=== PATIENT | female | born 1995 | race Caucasian/White ===

== ENCOUNTER 2024-08-18 14:33 | Outpatient (REF) | payer BC, SELFPAY ==
--- OUTSIDE RECORDS SUMMARY | 2016-07-10 14:30 | XMS_ITS | Continuity of Care Document ---
Author Organization [facility] Address [address] [place] [address] Phone Care Team Providers Care Dog Daycare Provider Name Role Phone Carmen Banda Unavailable Unavailable [...] Copied on Encounter Office/outpa tient visit,est, mod [facility], [address], [place], [place], [id number], [place] tel:[phone] [facility] [place] [place] [facility] Neck pain (chief complaint) Strain of neck, initial encounterNec k muscle spasm 7 Veronika Morales. [address], [place], [address], [place]. tel:[phone] [facility], [address], [place], [place], [id number], [place] tel:[phone] [facility] [place] Radiology Void Ticket 7 [facility]. [address] [place], [address], [place]. tel:[phone] Office/outpa tient visit,jan [facility], [address] [place] [address], [id number], [place] tel:[phone] [facility] [place] [facility] Care musculoskelet al pain (chief complaint) Acute pain of right shoulder 7 Linsenbigle r Edwin. [facility] [place], [address], [place]. tel:[phone] Office/outpa tient visit,[facility], [address] [place] [address], [id number], [place] tel:[phone] [facility] Sore throat (chief complaint)Cli nical guidelines (chief complaint) Acute bacterial tonsillitisO th bacterial agents as the cause of diseases classd elswhrBody mass index (BMI) 32.0-32.9, adult 6 Cushingber[place] y-Rivas Julia. [address] [place] [address], [address], [place]. tel:[phone] Office/outpa tient visit,[facility], [address] [place] [address], [id number], [place] tel:[phone] [facility] Cough (chief complaint) CoughEncount er for exam of blood pressure w/o abnormal findings 5 Cushingber[place] y-Rivas Julia. [address] [place], [address], [place]. tel:[phone] Office/outpa tient visit,[facility], [facility], [address] [place] [address], [id number], [place] tel:[phone] [facility] cough (chief complaint) URI, acutePregnan t 5 Silverio Omer. [facility] [place], [address], [place]. tel:[phone] [facility], [address], [place], [place], [id number], [place] tel:[phone] [facility] [place] Radiology No Information 5 Ludin Wayneder. [address] [place], [address], [place]. tel:[phone] Office/outpa tient visit,est, [facility], [address], [place], [place], [id number], [place] tel:[phone] [facility] [place] [facility] L ankle swollen (chief complaint)ank le pain (chief complaint) Left ankle injury 5 Noland Yadwinder. [address] [place], [address], [place]. tel:[phone] Office/outpa tient visit,[facility], [facility], [address], [place], [id number], [place] tel:[phone] [facility] Discuss test results (chief complaint) Mass of right axilla 5 Cushingberr y-Rivas Julia. [address] [place], [address], [place]. tel:[phone] Office/outpa tient visit,[facility], [facility], [address], [place], [id number], [place] tel:[phone] [facility] Follow Up of Mass of R- axilla (chief complaint) Mass of right axilla 5 Cushingberr y-Rivas Julia. [address] [place], [address], [place]. tel:[phone] Office/outpa tient visit,[facility], [facility], [address], [place], [id number], [place] tel:[phone] [facility] ultrasound results (chief complaint) LOCAL SUPRFICIAL SWELLNG 5 4 Latanya Dumont. [address] [place], [address], [place]. tel:[phone] OFFICE/OUTPA TIENT VISIT [facility], [address], [place], [place], [id number], [place] tel:[phone] [facility] swollen underarm (chief complaint) OTH SPECIFIED EXAMMass of right axilla 4 Latanya Dumont. [address] [place], [address], [place]. tel:[phone] Family History Family Member Type Diagnosis Age At Onset Problem (finding) Family history of Diabe kristen mellitus Problem (finding) Family history of cancer of the esophagus Problem (finding) Family history of hyper tension Problem (finding) Family history of malignant neoplasm of breast in first degree relative Payers Payer name Insurance type Covered republican ID Authoriza tion(s[facility] [id number] Social History Type Description Quantity Date Captured [...] bring vaccine record in next visit. 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 Cough (comments) says cough 6 we eks [...] Mental Status Date Cognitive Assessment Orientation - [place] ed to time, place, person, situation. Patient Care Teams Name Effective Dates (start - stop) Status Members No Information
[2024-08-18 19:03] LABS: Hematocrit 36.2 % (37.0-47.0); Hemoglobin 10.6 g/dl (12.0-16.0); Immature Retic Fraction 20.7 % (3.0-15.9); Mean Corpuscular HGB Conc 29.3 g/dl (31.0-35.0); Mean Corpuscular Hemoglobin 21.2 pg (27.0-33.0); Mean Corpuscular Volume 72.3 fL (80.0-98.0); Mean Platelet Volume 9.4 fL (9.4-12.3); Platelet Count 331 X10*3/uL (160-400); Red Blood Count 5.01 X10*6/uL (4.20-5.50); Red Cell Distribution Width 22.3 % (11.0-16.0); Retic HGB Equivalent 25.9 pg (30.0-35.0); Reticulocyte Percent 1.5 % (0.5-1.8); Reticulocytes Absolute 0.075 X10*6/uL (0.026-0.095); White Blood Count 6.8 X10*3/uL (4.8-10.8)
[2024-08-18 19:05] LABS: Alanine Aminotransferase 28 U/L (0-31); Albumin Level 4.4 g/dL (3.5-5.0); Alkaline Phosphatase 45 U/L (39-117); Anion Gap 13 (12-20); Aspartate Amino Transferase 43 U/L (5-31); Bilirubin Total 0.3 mg/dL (0.0-1.0); Blood Urea Nitrogen 7 mg/dL (9-16); Calcium 9.1 mg/dL (8.4-10.2); Carbon Dioxide 24 mmol/L (22-29); Chloride 109 mmol/L (96-108); Estimated Glomerular Filt Rate > 60; Glucose Random 70 mg/dL (60-115); Iron 142 mcg/dL (30-160); Lactate Dehydrogenase 335 U/L (122-220); Percent Iron Saturation 34 % (15-50); Potassium 3.8 mmol/L (3.3-5.1); Sodium 142 mmol/L (135-145); Total Iron Binding Capacity 423 mcg/dL (228-428); Total Protein 7.3 g/dL (6.5-8.0); Unsaturated Iron Binding 281 ug/dL
[2024-08-18 19:22] LABS: Ferritin 12 ng/mL (10-122); TSH reflex Free T4 1.44 uIU/mL (0.32-4.0)
[2024-08-18 19:26] LABS: Folate 14.8 ng/mL (> or = 4.0); Vitamin B12 519 pg/mL (200-900)
[2024-08-18 20:10] LABS: Erythrocyte Sedimentation Rate 9 MM/HR (0-20)
[2024-09-01 15:24] LABS: VITAMIN D (1,25 OH) D3 48 pg/mL; Vit D (1,25-Dihydroxy) Total 48 pg/mL (18-72); Vitamin D (1,25 OH) D2 <8 pg/mL
== END 2024-08-18 14:34 | disposition home or self-care (01) ==
LOC: HO.WFDLDS 14:33
PROVIDERS: Visit Provider Nurse Practitioner Family
DX: D50.0 Iron deficiency anemia secondary to blood loss (chronic) (principal); E66.9 Obesity, unspecified
CPT/HCPCS: 36415; 80053; 82607; 82652; 82728; 82746; 83540; 83615; 84443; 85027; 85045; 85652; 86141

== ENCOUNTER 2024-08-19 09:50 | Outpatient (AMB) | payer BC, SELFPAY ==
--- OUTSIDE RECORDS SUMMARY | 2016-07-10 14:30 | XMS_ITS | Continuity of Care Document ---
Author Organization [facility] Address [address] [place] [address] Phone Care Team Providers Care Conservation Planner Name Role Phone aCrmen Banda Unavailable Unavailable Allergies, Adverse Reactions, Alerts [...] Copied on Encounter Office/outpa tient visit,est, mod [facility], [address], [place], [place], [id number], [place] tel:[phone] [facility] Urgent Care Neck pain (chief complaint) Strain of neck, initial encounterNec k muscle spasm 7 Veronika Morales. [address], [place], [address], [place]. tel:[phone] [facility], [address], [place], [place], [id number], [place] tel:[phone] [facility] Radiology Void Ticket 7 [facility]. [address] [place], [address], [place]. tel:[phone] Office/outpa tient visit,jan [facility], [address] [place] [address], [id number], [place] tel:[phone] [facility] Urgent Care musculoskelet al pain (chief complaint) Acute pain of right shoulder 7 Linsenbigle r Edwin. [facility] [place], [address], [place]. tel:[phone] Office/outpa tient visit,[facility], [address] [place] [address], [id number], [place] tel:[phone] [facility] Sore throat (chief complaint)Cli nical guidelines (chief complaint) Acute bacterial tonsillitisO th bacterial agents as the cause of diseases classd elswhrBody mass index (BMI) 32.0-32.9, adult 6 Cushingberr y-Rivas Julia. [address] [place] [address], [address], [place]. tel:[phone] Office/outpa tient visit,[facility], [address] [place] [address], [id number], [place] tel:[phone] [facility] Cough (chief complaint) CoughEncount er for exam of blood pressure w/o abnormal findings 5 Cushingberr y-Rivas Julia. [address] [place], [address], [place]. tel:[phone] Office/outpa tient visit,[facility], [facility], [address] [place] [address], [id number], [place] tel:[phone] [facility] cough (chief complaint) URI, acutePregnan t 5 Silverio Omer. [facility] [place], [address], [place]. tel:[phone] [facility], [address], [place], [place], [id number], [place] tel:[phone] [facility] Radiology No Information 5 Ludin Wayneder. [address] [place], [address], [place]. tel:[phone] Office/outpa tient visit,est, [facility], [address], [place], [place], [id number], [place] tel:[phone] [facility] Urgent Care L ankle swollen (chief complaint)ank le pain (chief complaint) Left ankle injury 5 Noland Yadwinder. [address] [place], [address], [place]. tel:[phone] Office/outpa tient visit,[facility], [facility], [address], [place], [id number], [place] tel:[phone] [facility] Discuss test results (chief complaint) Mass of right axilla 5 Cushingberr y-Rivas Julia. [address] [place], [address], [place]. tel:[phone] Office/outpa tient visit,[facility], [facility], [address], [place], [id number], [place] tel:[phone] [facility] Follow Up of Mass of R- axilla (chief complaint) Mass of right axilla 5 Cushingberr y-Rivas Julia. [address] [place], [address], [place]. tel:[phone] Office/outpa tient visit,[facility], [facility], [address], [place], [id number], [place] tel:[phone] [facility] ultrasound results (chief complaint) LOCAL SUPRFICIAL SWELLNG 5 4 Latanya Dumont. [address] [place], [address], [place]. tel:[phone] OFFICE/OUTPA TIENT VISIT [facility], [address], [place], [place], [id number], [place] tel:[phone] [facility] Practice swollen underarm (chief complaint) OTH SPECIFIED EXAMMass of right axilla 4 Latanya Dumont. [address] [place], [address], [place]. tel:[phone] Family History Family Member Type Diagnosis Age At Onset Problem (finding) Family history of Diabe kristen mellitus Problem (finding) Family history of cancer of the esophagus Problem (finding) Family history of hyper tension Problem (finding) Family history of malignant neoplasm of breast in first degree relative Payers Payer name Insurance type Covered republican ID Authoriza tion(s) [facility] [id number] Social History Type Description Quantity Date Captured [...] Of Treatment Date Type Action Status Goal Depression screening. Due on due Goal [...] Goal HPV (1st). Due on 6 due Patient Education Neck [...] bring vaccine record in next visit. 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 Cough (comments) says cough 6 we eks [...] exam Related to URI, acute Due 11/10/2014, michael aaron a baby girl, first child Related [...] Mental Status Date Cognitive Assessment Orientation - [place] ed to time, place, person, situation. Patient Care Teams Name Effective Dates (start - stop) Status Members No Information
--- NOTE | 2024-08-19 09:54 | A.OFFPC_ITS ---
Vital Signs 3 08/19/24 10:07 Height 5 ft 3 in Weight 204 lb 6 oz BMI 36.2 BP 118/70 Blood Pressure Location Rt brachial Position Sitting Respiration 12 Pulse 79 Pulse Source Pulse Oximeter Temp 97.3 F Temp Source Oral Pulse Oximetry (%) 99 Oxygen Delivery Method Room Air Intake Visit Reasons: Est. Care / Low Iron Intake Note: New patient to establish care. Patient was dx with low iron two months ago and patient has concern about this and slo about migraines. 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 Required: No Allergies No Known Allergies Allergy (Verified 08/19/24 09:56) Medication List - Last Reconciled 08/19/24 by Saloni Tillman, EXECUTIVE KITCHEN MANAGER- ferrous sulfate (iron) 325 mg PO DAILY Tobacco use date assessed: 08/19/24 Dental Screening Dental Screen Date: 08/19/24 Did you have a dental visit in the last 12 months?: No Did you have a dental problem in the last 6 months where you did not have access to dental care?: No Was dental information given to patient?: No HPI HPI Comments 2 History of Present Illness0 Details 24 y/o F with anemia, R axilla mass, david mee, obesity s/p L foot surgery w/ hardware 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 Relocted from [place]. 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 Mass R axilla mass present for years US done told not cancer Remains, unsure about changes. Anemia since high school told, placed on Iron, did fine. Then stopped. Has been taking Iron since 06/2024 when went to ED Dizziness comes and goes w/ migraines Has improved with Iron supplement Having abd pain and constipation w/ Iron supplement but otherwise no GI complaints. Menses - 6 days late; home preg test negative yesterday ; super heavy periods @ baseline. 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 Migraines: since teenage years; come and go; humidity is a trigger, along w/ computer use Uses excedrin prior to start but sometimes this doesnt work 2 x week Review of Systems - Constitutional: Denies weight loss or gain. - Eyes: Reports blurred vision. - Cardiovascular: No complaints reported . - Respiratory: Denies shortness of breat h outside of episode related to low hemoglobin. - Gastrointestinal: Reports nausea and a bdominal discomfort secondary to iron supplementation. - Genitourinary: Reports heavy menstrual bleeding, menstruation currently delayed. - Neurological: Reports migraines; dizzi ness associated with low hemoglobin. - Musculoskeletal: No additional complai nts reported. - Skin: Right axillary mass, non-painful unless irritated. - Endocrine: Denies diabetes symptoms. - Hematologic: Reports low hemoglobin hi story; improved with iron supplementation. - Psychiatric: Denies depressive symptom s; low energy attributed to anemia. Physical Exam General: Well developed, well nourished, in no acute distress. Appears stated age. Head: Normocephalic, atraumatic. Eyes: Pupils are equal, round and reactive to light and accommodation. Mild conjunctival pallor Lungs: Clear to auscultation bilaterally. No rales, rhonchi or wheeze noted. Good air flow in all garcia. Heart: Regular rate and rhythm. No murmurs, click, rubs or gallops are noted. Abdomen: Bowel sounds present in all quadrants. The abdomen is soft, nontender, with no masses or organomegaly noted. No hernias are noted. R axilla under the area of pink, hypertrophied skin is a mobile mildly painful lump; some local adenopathy appreciated. No redness or drainage. Pulses: Peripheral pulses are equal and palpable bilaterally. Extremities: No clubbing, cyanosis nor edema is noted. Psych: Mood and affect appropriate. Results: See below Assessment and Plan 1. Anemia - Continue daily iron supplements; repea t labs in 3 months. - Consider hormonal options for bleeding control; refer to OBGYN. 2. Migraine Headaches - Start magnesium/riboflavin & abortive triptans 3. Obesity - General lifestyle modifications discus sed. 4. Heavy Menstrual Bleeding - Consider contraceptives/IUD; refer to OBGYN. 5. Right Axillary Mass - Order updated ultrasound. Patient Instructions - Take iron supplements at bedtime with a snack to avoid GI upset. - Call to schedule and follow through appointments for ultrasound and OBGYN. - Monitor and report any changes in symp toms, such as dizziness or abnormal bleeding. - Continue to manage migraines with envi ronmental modifications and [id number]-lyl-[id number] options. - If nausea persists with iron, try taki ng antacids at different times from iron or discuss alternatives. RTO 3 months w/ repeat labs. My office will contact you for fu once US is resulted Consent. Patient was informed and verbally consented to the use of an ambient scribe for clinic note documentation during this visit. Total time spent caring for the patient today was 60 minutes. This includes time spent before the visit reviewing the chart, time spent during the visit, and time spent after the visit on documentation, reviewing laboratory results, diagnostic imaging, medications, performing a medically necessary evaluation, counseling on diagnoses, care coordination, ordering appropriate tests, ordering appropriate medications, review of tests performed by other providers, reporting test results with the patient, communication with other healthcare providers. [facility] Medical History (Updated 08/19/24 @ 11:39 by Saloni Tillman, [facility]) GERD (gastroesophageal reflux disease) Headache Low iron Migraines Surgical History (Updated 08/19/24 @ 10:11 by Vita Cuadra MA) No pertinent past surgical history Family History (Updated 08/19/24 @ 10:11 by Vita Cuadra MA) Mother HTN (hypertension) Father Diabetes Social History (Updated 08/19/24 @ 10:10 by Vita Cuadra MA) Household Members: Children and Other Household Members Other:: parents Both parents involved: Yes Caregiver staying overnight: No Housing: House Are you a primary career technical education instructor to a significant other at home: Yes Do you presently have visiting nurse or other home services: No 75 years or older and lives alone: No Alcohol intake: current Alcohol intake frequency: a few times a month Patient Tobacco Use Status: Never used Tobacco e-Cigarette/Vaping Use: Never Used Second Hand Smoke Exposure: No Current occupational status: employed 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 1. Little interest or pleasure in doing things: not at all 2. Feeling down, depressed, or hopeless: not at all 3. Trouble falling or staying asleep, or sleeping too much: several days 4. Feeling tired or having little energy: several days 5. Poor appetite or overeating: not at all 6. Feeling bad about yourself - or that you are a failure or have let yourself or your family down: not at all 7. Trouble concentrating on things, such as reading the newspaper or watching television: not at all 8. Moving or speaking so slowly that other people could have noticed. Or the opposite - being so fidgety or restless that you have been moving around a lot more than usual: not at all 9. Thoughts that you would be better off or of hurting yourself in some way: not at all Total score: 2 Depression Screening Interpretation: Negative Depression Screening Done: Yes 90792 - PHQ-9 Billing: Yes Source: Developed by Drs. Lev Jean, Maria Fernanda Davis, Rolando Lua and colleagues, with an educational john from [email or web address]. Thrive Questionnaire Date Thrive assessed: 08/19/24 I am a: Patient What is your living situation today?: I have a steady place to live Within the past 12 months, did the food you bought not last and you didn't have the money to get more?: Never true Within the past 12 months, did you worry whether your food would run out before you got money to buy more?: Never true Do you have trouble paying for medicines?: No Do you have trouble getting transportation to medical appointments?: No Do you have trouble paying your heating and electricity bill?: No Do you have trouble taking care of your child, family member or friend?: No Do you have trouble with day-to-day activities such as bathing, preparing meals, shopping, managing finances, etc.?: No Are you currently unemployed and looking for a job?: No Are you interested in more education?: Yes Please select the resources that you would like help with: None Currently or been in a relationship where the following occur: No concerns reported THRIVE Score: 0 AUDIT C Alcohol Use Questionnaire (AUDIT-C) 1. How often do you have a drink containing alcohol?: 2-3 times a week 2. How many drinks containing alcohol do you have on a typical day when you are drinking?: 1 or 2 3. How often do you have six or more drinks on one occasion?: Never Total Score: 3 Score Reviewed/Action Taken: Yes ROXANNE-7 AMB Questionnaire ROXANNE-7 Date ROXANNE - 7 assessed: 08/19/24 Feeling nervous, anxious, or on edge: 1 = Several days Not being able to stop or control worryin = Several days Worrying too much about different things: 0 = Not at all Trouble relaxin = Several days Being so restless that it is hard to sit still: 0 = Not at all Becoming easily annoyed or irritable: 0 = Not at all Feeling afraid as if something awful might happen: 0 = Not at all Total ROXANNE-7 score (0-4 normal; 5-9 mild; 10-14 moderate; 15-21 severe): 3 Source: Developed by Drs. Lev Jean, Maria Fernanda Davis, Rolando Lua and colleagues, with an educational john from [email or web address]. ROXANNE-7 Assessment Billing ROXANNE-7 Assessment Tool: ROXANNE-7 Assessment 29316 Physical exam (Primary Care) Vital Signs: Last Vital Signs Temp 97.3 F 08/19/24 10:07 Pulse 79 08/19/24 10:07 Resp 12 08/19/24 10:07 BP 118/70 08/19/24 10:07 Pulse Ox 99 08/19/24 10:07 Oxygen Delivery Method Room Air 08/19/24 10:07 BMI result Body Mass Index 36.2 BMI Assessment/Plan discussion: High BMI High, discussed plan: lifestyle Tobacco/Smoking Status: Tobacco use Status Tobacco use date assessed 08/19/24 08/19/24 09:57 Patient Tobacco Use Status Never used Tobacco 08/19/24 10:10 e-Cigarette/Vaping Use Never Used 08/19/24 10:10 PHQ-9: PHQ-9 Score PHQ-9: Total score 2 08/19/24 11:02 Depression Screening Interpretation: Negative Thrive Assessment: Date of Thrive Assessment Date Thrive assessed 08/19/24 08/19/24 09:57 Currently or been in a relationship where the following occur: No concerns reported Results Reviewed Results Reviewed: 24 y/o F with anemia, family hx of breast ca, s/p Fhx: DM, Cancer of esoph, HTN, breast ca Health Maintenance Tdap Pap Specialists [facility] 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 2 [facility] Family Medicine Saloni Tillman, EXECUTIVE KITCHEN MANAGER-BC Test Result Units Range Flag Collected White Blood Count 6.8 X10*3/uL (4.8-10.8) 08/18/24 Red Blood Count 5.01 X10*6/uL (4.20-5.50) 08/18/24 Hemoglobin 10.6 g/dl (12.0-16.0) Low 08/18/24 Hematocrit 36.2 % (37.0-47.0) Low 08/18/24 Mean Corpuscular Volume 72.3 fL (80.0-98.0) Low 08/18/24 Mean Corpuscular Hemoglobin 21.2 pg (27.0-33.0) Low 08/18/24 Mean Corpuscular Hemoglobin Concent 29.3 g/dl (31.0-35.0) Low 08/18/24 Red Cell Distribution Width 22.3 % (11.0-16.0) High 08/18/24 Platelet Count 331 X10*3/uL (160-400) 08/18/24 Mean Platelet Volume 9.4 fL (9.4-12.3) 08/18/24 Nucleated RBC Absolute Count (auto) 0.000 X10*3/uL (0.0-0.012) 08/18/24 Nucleated Red Blood Cells % (auto) 0.0 /100WBC (0.0-0.2) 08/18/24 Erythrocyte Sedimentation Rate 9 MM/HR (0-20) 08/18/24 Absolute Reticulocyte Count 0.075 X10*6/uL (0.026-0.095) 08/18/24 Percent Reticulocyte Count 1.5 % (0.5-1.8) 08/18/24 Immature Reticulocyte Fraction 20.7 % (3.0-15.9) High 08/18/24 Reticulocyte Hemoglobin Equivalent 25.9 pg (30.0-35.0) Low 08/18/24 Sodium Level 142 mmol/L (135-145) 08/18/24 Potassium Level 3.8 mmol/L (3.3-5.1) 08/18/24 Chloride Level 109 mmol/L (96-108) High 08/18/24 Carbon Dioxide Level 24 mmol/L (22-29) 08/18/24 Anion Gap 13 (12-20) 08/18/24 Blood Urea Nitrogen 7 mg/dL (9-16) Low 08/18/24 Creatinine 0.81 mg/dL (0.5-1.4) 08/18/24 Estimated Creatinine Clearance Calc Not Reportable 08/18/24 Estimat Glomerular Filtration Rate > 60 08/18/24 Random Glucose 70 mg/dL (60-115) 08/18/24 Calcium Level 9.1 mg/dL (8.4-10.2) 08/18/24 Iron Level 142 mcg/dL (30-160) 08/18/24 Total Iron Binding Capacity 423 mcg/dL (228-428) 08/18/24 Percent Iron Saturation 34 % (15-50) 08/18/24 Unsaturated Iron Binding 281 ug/dL 08/18/24 Ferritin 12 ng/mL (10-122) 08/18/24 Total Bilirubin 0.3 mg/dL (0.0-1.0) 08/18/24 Aspartate Amino Transf (AST/SGOT) 43 U/L (5-31) High 08/18/24 Alanine Aminotransferase (ALT/SGPT) 28 U/L (0-31) 08/18/24 Alkaline Phosphatase 45 U/L (39-117) 08/18/24 Lactate Dehydrogenase 335 U/L (122-220) High 08/18/24 Total Protein 7.3 g/dL (6.5-8.0) 08/18/24 Albumin 4.4 g/dL (3.5-5.0) 08/18/24 Vitamin B12 Level 519 pg/mL (200-900) 08/18/24 Folate 14.8 ng/mL (> or = 4.0) 08/18/24 Thyroid Stimulating Hormone (TSH) 1.44 uIU/mL (0.32-4.0) 08/18/24 RUN: 08/19/24 1129 PAGE 1 [facility] [address] [place] [id number] Tools Developer: Golden Edwards M.D. Specimen Inquiry L Name: Mariposa Pineda Age/Sex: 28/F : 1995 Unit#: [id number] Attend Dr: Saloni Tillman [facility] Re08/19/24 Status: REG REF Location: [facility] isch: SPEC : [id number] SUZETTE: 08/18/24-7 STATUS: COMP REQ : [id number] RECD: 08/19/24-[address]: Saloni Tillman [facility] COMP: 08/19/24-1122 ENTERED: 08/19/24-[address]: ORDERED: HCG Quant COMMENTS: ADD ON Test Result Flag Reference HCG Quant < 2 mIU/mL Weeks post LMP Approximate hCG (Last Menstrual Period) Range (mIU/ml) 3 - 4 weeks 9 - 130 4 - 5 weeks 75 - 2,600 5 - 6 weeks 850 - 20,800 6 - 7 weeks 4000 - 100,200 7 - 12 weeks 11,500 - 289,000 12 - 16 weeks 18,300 - 137,000 16 - 29 weeks (2nd trimester) 1,400 - 53,000 29 - 41 weeks (3rd trimester) 940 - 60,000 The Finch B-hCG assay is used for the early detection of ; it cannot be used to diagnose any condition unrelated to . If a B-hCG level is not supported by the clinical evidence, results should be confirmed by an alternative method (qualitative urine hCG, for example). Coding Level of Care Code New Pt Level 5 (90422) Complex EM visit Add On G2211 Diagnoses Encounter to establish care Z76.89 Hospital discharge follow-up Z09 Obesity (BMI 30-39.9) E66.9 Missed period N92.6 Menorrhagia with regular cycle N92.0 Menorrhagia type: with regular cycle Mass of right axilla R22.31 Iron deficiency anemia due to chronic blood loss D50.0 Anemia type: iron deficiency Iron deficiency anemia type: chronic blood loss Migraine without aura and without status migrainosus, not intractable G43.009 Status migrainosus presence: without status migrainosus Intractability: not intractable Additional Codes ROXANNE-7 Assessment Billing - ROXANNE-7 Assessment Tool: ROXANNE-7 Assessment 31237 ([id number]) PHQ-9 - 93265 - PHQ-9 Billing: Yes ([id number]) Assessment & Plan Assessment & Plan (1) Encounter to establish care: Code(s): Z76.89 - Persons encountering health services in other specified circumstances (2) Hospital discharge follow-up: Code(s): Z09 - Encounter for follow-up examination after completed treatment for conditions other than malignant neoplasm (3) Obesity (BMI 30-39.9): Code(s): E66.9 - Obesity, unspecified Category: Medical (4) Missed period: Code(s): N92.6 - Irregular menstruation, unspecified Category: Medical (5) Menorrhagia: Code(s): N92.0 - Excessive and frequent menstruation with regular cycle Category: Medical Qualifiers: Menorrhagia type: with regular cycle Qualified Code(s): N92.0 - Excessive and frequent menstruation with regular cycle (6) Mass of right axilla: Code(s): R22.31 - Localized swelling, mass and lump, right upper limb Category: Medical (7) Anemia: Code(s): D64.9 - Anemia, unspecified Category: Medical Qualifiers: Anemia type: iron deficiency Iron deficiency anemia type: chronic blood loss Qualified Code(s): D50.0 - Iron deficiency anemia secondary to blood loss (chronic) (8) Migraine headache without aura: Code(s): G43.009 - Migraine without aura, not intractable, without status migrainosus Category: Medical Qualifiers: Status migrainosus presence: without status migrainosus Intractability: not intractable Qualified Code(s): G43.009 - Migraine without aura, not intractable, without status migrainosus Plan . Orders: Orders 2 Comprehensive Met. Panel 08/18/24 D64.9 - Anemia, unspecified Ferritin 08/18/24 D64.9 - Anemia, unspecified CRP High Sensitivity 08/18/24 D64.9 - Anemia, unspecified HCG Quantitative Today N92.6 - Irregular menstruation, unspecified US soft tiss head and/or neck Today R22.31 - Localized swelling, mass and lump, right upper limb Haptoglobin 3 Months D64.9 - Anemia, unspecified Complete Blood Count no Diff 08/18/24 D64.9 - Anemia, unspecified IRON PROFILE 08/18/24 D64.9 - Anemia, unspecified TSH reflex Free T4 08/18/24 D64.9 - Anemia, unspecified Vitamin D 1,25 dihydroxy 08/18/24 D64.9 - Anemia, unspecified Vitamin B12 and Folate 08/18/24 D64.9 - Anemia, unspecified Lactate Dehydrogenase 08/18/24 D64.9 - Anemia, unspecified Reticulocyte Count 08/18/24 D64.9 - Anemia, unspecified Erythrocyte Sedimentation Rate 08/18/24 D64.9 - Anemia, unspecified Pathologist Review - CBC 3 Months D64.9 - Anemia, unspecified Lactate Dehydrogenase 3 Months D64.9 - Anemia, unspecified IRON PROFILE 3 Months D64.9 - Anemia, unspecified Bilirubin, Tot & Dir 3 Months D64.9 - Anemia, unspecified Referrals 2 CONSTRUCTION TRENCH DIGGER Referral N92.0 - Excessive and frequent menstruation with regular cycle Medications: New 2 riboflavin (vitamin B2) 400 mg PO BEDTIME 90 tabs 2RF sumatriptan succinate take 1 tab at onset of headache; if no relief may repeat 1 tab after at least 2 hrs; max = 4 tabs/24 hr PO 7 tabs 12RF magnesium oxide 400 mg PO BEDTIME 90 caps 2RF Patient Instructions: Consent Patient was informed and verbally consented to the use of an ambient scribe for clinic note documentation during this visit. Total time spent caring for the patient today was 30 minutes. This includes time spent before the visit reviewing the chart, time spent during the visit, and time spent after the visit on documentation, reviewing laboratory results, diagnostic imaging, medications, performing a medically necessary evaluation, counseling on diagnoses, care coordination, ordering appropriate tests, ordering appropriate medications, review of tests performed by other providers, reporting test results with the patient, communication with other healthcare providers.
[2024-08-19 10:07] VITALS: BP 118/70; PULSE 79; RESP 12; TEMP 36.3; O2SAT 99; BMI 36.2
== END 2024-08-19 10:56 | disposition home or self-care (01) ==
LOC: HO.HMCFM 09:51
PROVIDERS: PCP Nurse Practitioner Family; Visit Provider Nurse Practitioner Family
DX: N92.6 Irregular menstruation, unspecified (principal); E66.9 Obesity, unspecified; N92.0 Excessive and frequent menstruation with regular cycle; Z68.36 Body mass index [BMI] 36.0-36.9, adult; Z76.89 Persons encountering health services in other specified circumstances; Z09 Encounter for follow-up examination after completed treatment for conditions other than malignant neoplasm; R22.31 Localized swelling, mass and lump, right upper limb; D50.0 Iron deficiency anemia secondary to blood loss (chronic); G43.009 Migraine without aura, not intractable, without status migrainosus

== ENCOUNTER 2024-08-19 09:50 | Outpatient (REF) | payer BC, SELFPAY ==
[2024-08-19 11:22] LABS: HCG Quantitative < 2 mIU/mL
== END 2024-08-19 09:51 | disposition home or self-care (01) ==
LOC: HO.LAB 09:50
PROVIDERS: PCP Nurse Practitioner Family; Visit Provider Nurse Practitioner Family
DX: Z76.89 Persons encountering health services in other specified circumstances (principal); N92.6 Irregular menstruation, unspecified; E66.9 Obesity, unspecified; Z68.36 Body mass index [BMI] 36.0-36.9, adult; N92.0 Excessive and frequent menstruation with regular cycle; R22.31 Localized swelling, mass and lump, right upper limb; D50.0 Iron deficiency anemia secondary to blood loss (chronic); G43.009 Migraine without aura, not intractable, without status migrainosus
CPT/HCPCS: 36415; 84702; 96127

== ENCOUNTER 2024-10-21 16:35 | Outpatient (REF) | payer BC, SELFPAY ==
--- OUTSIDE RECORDS SUMMARY | 2016-07-10 14:30 | XMS_ITS | Continuity of Care Document ---
Author Organization [facility] Address [address] [place] [address] Phone Care Team Providers Care Tour Agent Name Role Phone Carmen Banda Unavailable Unavailable [...] Copied on Encounter Office/outpa tient visit,est, mod [facility], [address], [place], [place], [id number], [place] tel:[phone] [facility] Neck pain (chief complaint) Strain of neck, initial encounterNec k muscle spasm 7 Veronika Morales. [address], [place], [address], [place]. tel:[phone] [facility], [address], [place], [place], [id number], [place] tel:[phone] [facility] Void Ticket 7 [facility]. [address] [place], [address], [place]. tel:[phone] Office/outpa tient visit,jan [facility], [address] [place] [address], [id number], [place] tel:[phone] [facility] musculoskelet al pain (chief complaint) Acute pain of right shoulder 7 Linsenbigle r Edwin. [facility] [place], [address], [place]. tel:[phone] Office/outpa tient visit,[facility], [address] [place] [address], [id number], [place] tel:[phone] [facility] Sore throat (chief complaint)Cli nical guidelines (chief complaint) Acute bacterial tonsillitisO th bacterial agents as the cause of diseases classd elswhrBody mass index (BMI) 32.0-32.9, adult 6 Cushingber[place] y-Rivas Julia. [address] [place] [address], [address], [place]. tel:[phone] Office/outpa tient visit,[facility], [address] [place] [address], [id number], [place] tel:[phone] [facility] Cough (chief complaint) CoughEncount er for exam of blood pressure w/o abnormal findings 5 Cushingberr y-Rivas Julia. [address] [place], [address], [place]. tel:[phone] Office/outpa tient visit,[facility], [facility], [address] [place] [address], [id number], [place] tel:[phone] [facility] cough (chief complaint) URI, acutePregnan t 5 Silverio Omer. [facility] [place], [address], [place]. tel:[phone] [facility], [address], [place], [place], [id number], [place] tel:[phone] [facility] No Information 5 Ludin Wayneder. [address] [place], [address], [place]. tel:[phone] Office/outpa tient visit,est, [facility], [address], [place], [place], [id number], [place] tel:[phone] [facility] L ankle swollen (chief complaint)ank le pain (chief complaint) Left ankle injury 5 Noland Yadwinder. [address] [place], [address], [place]. tel:[phone] Office/outpa tient visit,[facility], [facility], [address], [place], [id number], [place] tel:[phone] [facility] Discuss test results (chief complaint) Mass of right axilla 5 Cushingberr y-Rivas Julia. [address] [place], [address], [place]. tel:[phone] Office/outpa tient visit,[facility], [facility], [address], [place], [id number], [place] tel:[phone] [facility] Follow Up of Mass of R- axilla (chief complaint) Mass of right axilla 5 Cushingberr y-Rivas Julia. [address] [place], [address], [place]. tel:[phone] Office/outpa tient visit,[facility], [facility], [address], [place], [id number], [place] tel:[phone] [facility] ultrasound results (chief complaint) LOCAL SUPRFICIAL SWELLNG 5 4 Latanya Dumont. [address] [place], [address], [place]. tel:[phone] OFFICE/OUTPA TIENT VISIT [facility], [address], [place], [place], [id number], [place] tel:[phone] [facility] Practice swollen underarm (chief complaint) OTH SPECIFIED EXAMMass of right axilla 4 Latanya Dumont. [address] [place], [address], [place]. tel:[phone] Family History Family Member Type Diagnosis Age At Onset Problem (finding) Family history of Diabe krsiten mellitus Problem (finding) Family history of cancer of the esophagus Problem (finding) Family history of hyper tension Problem (finding) Family history of malignant neoplasm of breast in first degree relative Payers Payer name Insurance type Covered alliance party ID Authoriza tilazaro(s) [facility] [id number] Social History Type Description Quantity Date Captured Comments Alcohol Use Details Unknown Caffeine Use Details Unknown Tobacco Use Status Never smoked tobacco 2016 Smoking Status Never smoker Non-Smoking Tobacco Use Details : No Details Available : No Details Available Sex Female Sexual Orientation Something else, please describe (Pansexual) Vital Signs Date / Time: Height Weight [...] Goal PAP. Due on due Goal HPV (1st). Due on due Goal Lipid panel. Due on due Goal Depression screening. Due on due Goal Tdap Vaccine . Due on due Goal Tdap Vaccine . Due on due Goal Lipid panel. Due on 017 due Goal Eye Exam. Due on due Goal Depression screening. Due on due Goal HPV (1st). Due on due Goal PAP. Due on due Goal Depression screening. Due on due Goal Tdap Vaccine . Due on due Goal HPV (1st). Due on due Goal Lipid panel. Due on 017 due Goal PAP. Due on due Goal Eye Exam. Due on due Goal HPV (1st). Due on 6 due Goal Eye Exam. Due on due Goal Lipid panel. Due on 016 due Goal Tdap Vaccine . Due on [...] bring vaccine record in next visit. [facility] Cough (comments) says cough 6 we eks [...] are no associated symptoms. Additional information: -[facility]. cough Onset: 2 weeks a go. The [...] Mental Status Date Cognitive Assessment Orientation - [place] ed to time, place, person, situation. Patient Care Teams Name Effective Dates (start - stop) Status Members No Information
--- NOTE | ~2024-10-21 | US_ITS ---
EXAMINATION: US SOFT TISSUE HEAD AND NECK LIMITED. CLINICAL INFORMATION: Localized swelling/mass/lump, right upper limb. COMPARISON: None available. TECHNIQUE: Linear transducer d[place]-scale and color Doppler examination with attention to the region of the right axilla. Limited exam. FINDINGS: No solid or cystic lesion. No fluid collections. No increased vasculature on color Doppler interrogation. US/US soft tiss head and/or neck IMPRESSION: No solid or cystic lesion. Negative exam.. Electronically signed by: Mauricio Ernst MD 10/22/2024 07:24 AM EDT
== END 2024-10-21 16:36 | disposition home or self-care (01) ==
LOC: HO.US 16:35
PROVIDERS: PCP Nurse Practitioner Family; Visit Provider Nurse Practitioner Family
DX: R22.31 Localized swelling, mass and lump, right upper limb (principal)
CPT/HCPCS: 76536

== ENCOUNTER → 2024-10-21 16:36 | Outpatient (BNV) | payer BC, SELFPAY | PROVIDERS: PCP Nurse Practitioner Family; Visit Provider Radiology Diagnostic Radiology | DX: R22.31 Localized swelling, mass and lump, right upper limb (principal) | CPT/HCPCS: 76536 ==

== ENCOUNTER 2024-10-23 08:54 | Outpatient (AMB) | payer BC, SELFPAY ==
--- OUTSIDE RECORDS SUMMARY | 2016-07-10 14:30 | XMS_ITS | Continuity of Care Document ---
Author Organization [facility] Address [address] [place] [address] Phone Care Team Providers Care Hand Rug Braider Name Role Phone Carmen Banda Unavailable Unavailable [...] Copied on Encounter Office/outpa tient visit,est, mod [facility], [address], [place], [place], [id number], [place] tel:[phone] [facility] Urgent Care Neck pain (chief complaint) Strain of neck, initial encounterNec k muscle spasm 7 Veronika Morales. [address], [place], [address], [place]. tel:[phone] [facility], [address], [place], [place], [id number], [place] tel:[phone] [facility] Radiology Void Ticket 7 [facility]. [address] [place], [address], [place]. tel:[phone] Office/outpa tient visit,jan [facility], [address] [place] [address], [id number], [place] tel:[phone] [facility] Urgent Care musculoskelet al pain (chief complaint) Acute pain of right shoulder 7 Linsenbigle r Edwin. [facility] [place], [address], [place]. tel:[phone] Office/outpa tient visit,[facility], [address] [place] [address], [id number], [place] tel:[phone] [facility] Sore throat (chief complaint)Cli nical guidelines (chief complaint) Acute bacterial tonsillitisO th bacterial agents as the cause of diseases classd elswhrBody mass index (BMI) 32.0-32.9, adult 6 Cushingber[place] y-Rivas Julia. [address] [place] [address], [address], [place]. tel:[phone] Office/outpa tient visit,[facility], [address] [place] [address], [id number], [place] tel:[phone] [facility] Cough (chief complaint) CoughEncount er for exam of blood pressure w/o abnormal findings 5 Cushingberr y-Rivas Julia. [address] [place], [address], [place]. tel:[phone] Office/outpa tient visit,[facility], [facility], [address] [place] [address], [id number], [place] tel:[phone] [facility] cough (chief complaint) URI, acutePregnan t 5 Silverio Omer. [facility] [place], [address], [place]. tel:[phone] [facility], [address], [place], [place], [id number], [place] tel:[phone] [facility] Radiology No Information 5 Ludin Wayneder. [address] [place], [address], [place]. tel:[phone] Office/outpa tient visit,est, [facility], [address], [place], [place], [id number], [place] tel:[phone] [facility] Urgent Care L ankle swollen (chief complaint)ank le pain (chief complaint) Left ankle injury 5 Noland Yadwinder. [address] [place], [address], [place]. tel:[phone] Office/outpa tient visit,[facility], [facility], [address], [place], [id number], [place] tel:[phone] [facility] Discuss test results (chief complaint) Mass of right axilla 5 Cushingberr y-Rivas Julia. [address] [place], [address], [place]. tel:[phone] Office/outpa tient visit,[facility], [facility], [address], [place], [id number], [place] tel:[phone] [facility] Follow Up of Mass of R- axilla (chief complaint) Mass of right axilla 5 Cushingberr y-Rivas Julia. [address] [place], [address], [place]. tel:[phone] Office/outpa tient visit,[facility], [facility], [address], [place], [id number], [place] tel:[phone] [facility] ultrasound results (chief complaint) LOCAL SUPRFICIAL SWELLNG 5 4 Latanya Dumont. [address] [place], [address], [place]. tel:[phone] OFFICE/OUTPA TIENT VISIT [facility], [address], [place], [place], [id number], [place] tel:[phone] [facility] Practice swollen underarm (chief complaint) OTH SPECIFIED EXAMMass of right axilla 4 Latanya Dumont. [address] [place], [address], [place]. tel:[phone] Family History Family Member Type Diagnosis Age At Onset Problem (finding) Family history of Diabe kristen mellitus Problem (finding) Family history of cancer of the esophagus Problem (finding) Family history of hyper tension Problem (finding) Family history of malignant neoplasm of breast in first degree relative Payers Payer name Insurance type Covered green party ID Authoriza tion(s) [facility] [id number] Social History Type Description Quantity Date Captured Comments Alcohol Use Details Unknown Caffeine Use Details Unknown Tobacco Use Status Never smoked tobacco 2016 Smoking Status Never smoker Non-Smoking Tobacco Use Details : No Details Available : No Details Available Sex Female Vital Signs Date / Time: Height Weight [...] Of Treatment Date Type Action Status Goal Eye Exam. Due on due Goal PAP. Due on due Goal Tdap Vaccine . Due on due Goal Depression screening. Due on due Goal Lipid panel. Due on 017 due Goal HPV (1st). Due on due Goal PAP. Due on due Goal HPV (). Due on due Goal Depression screening. Due on due Goal Eye Exam. Due on due Goal Lipid panel. Due on 017 due Goal Tdap Vaccine . Due on due Goal Eye Exam. Due on due Goal PAP. Due on due Goal Lipid panel. Due on 017 due Goal HPV (1st). Due on due Goal Tdap Vaccine . Due on due Goal Depression screening. Due on due Goal Tdap Vaccine . Due on due Goal Lipid panel. Due on 016 due Goal Eye Exam. Due on due Goal HPV (). Due on 6 due Patient Education Neck Spasm: Exercises c ompleted Patient Education Muscle Strain: After Yo ur Visit completed Patient Education Tonsillitis: After Your Visit completed History Of Present Illness Encounter Date Complaint History Of Prese nt Illness Neck pain (comments) History of present illness was reviewed by myself and I a agree with the nurse and i haved made changes accordingly . Carmen Banda MD Neck pain Onset: 12 hours ago. The [...] hadn't taken any pain meds today. ROBBIN SANTIAGO. musculoskeletal pain Onset: 1 we ek ago. Location: right shoulder. The pain radiates to the R side neck. The pain is throbbing. Context: there is no injury. The pain is aggravated by lifting. Additional information: Pt states pain started last week after dance practice. Clinical guidelines Per clinical guidelines patient due for Lipid panel,Eye exam,Tdap and HPV vaccines. Patient aware,will bring vaccine record in next visit. 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 LMP 2 weeks Sore throat Onset: 1 Day. Pa in scale: 4/10. Symptoms are not associated with history of allergies and history of asthma. Associated symptoms include ear ache. Pertinent negatives include fatigue, fever, headache or sinus pressure. Cough Onset: 2 weeks a go. The patient describes the cough as productive (of clear sputum). It occurs persistently. The problem has not changed. There are no associated symptoms. 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 Cough (comments) says cough 6 we eks . says still with cough had a z coyr in 10/2014 helded runniny nose tillwith cough . occ procuctinve no fever no shortness of breath antibiotics given by OB during hospital stay. brast feeding no menses yet delivered 11/17/14 cough Onset: 2 weeks a go. The [...] point is Tylenol but that isn't helping. ankle pain Onset: 3 days ag o. It occurs constantly and is stable. Location: left ankle. The pain is aggravated by bending and walking. The pain is relieved by rest. Associated symptoms include joint tenderness. Pertinent negatives include swelling and weakness. L ankle swollen Discuss test results (comments) no complaints today no pain to the area Discuss test results 18 yr. old female presents to discuss results on ultrasound of the axilla performed on . Follow Up of Mass of R- axilla (comments) denies axillary pain lump still present not onf left side. Follow Up of Mass of R- axilla 1 8 yr. old female presents for routine 6 mo. f/u on lump of the right axilla. Needs order for 6 mo. u/s. ultrasound results (comments) he re for results no pain under arm ultrasound results pt is here fo r her ultrasound results of arm done 09/15/13 swollen underarm The symptoms be sophia 1 year ago. The location is right underarm. pt states she has swollen under her right arm. denies pain unless pressure is added swollen underarm (comments) swol garth area under right arm x 1 yr no increase in size does get tender want to know what it is does not due SBE. fhx on maternal side neg for cancer Functional Status Date Functional Assessmen t Pain [...] pertussis screen f/u worstening Related to Cough Due 11/10/2014michael a baby girl, first child Related to Most likely viral in nature, informed pt to gargle with salt waterIf symptoms peresist or if she develops fever, rtcRTC yearly for physical exam Related to URI, acute Take tylenol / Advil as needed for [...] Mental Status Date Cognitive Assessment Orientation - [place] ed to time, place, person, situation. Patient Care Teams Name Effective Dates (start - stop) Status Members No Information
--- NOTE | 2024-10-23 09:01 | MHC.PC.OV ---
Intake Visit Reasons: tele today Intake Note: Stephanie presents for a teleheath appointment to go over US results. Allergies No Known Allergies Allergy (Verified 10/23/24 09:09) Medication List - Last Reconciled 10/23/24 by YOVANI Lazcano- ferrous sulfate (iron) 325 mg PO DAILY magnesium oxide 400 mg PO BEDTIME riboflavin (vitamin B2) 400 mg PO BEDTIME sumatriptan succinate take 1 tab at onset of headache; if no relief may repeat 1 tab after at least 2 hrs; max = 4 tabs/24 hr PO Tobacco use date assessed: 10/23/24 Dental Screening Dental Screen Date: 10/23/24 Did you have a dental visit in the last 12 months?: No Did you have a dental problem in the last 6 months where you did not have access to dental care?: No Was dental information given to patient?: No HPI HPI Comments History of Present Illness Details 24 y/o F with anemia, R axilla mass, migraines, obesity s/p L foot surgery w/ hardware 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 Mass R axilla mass present for years US done in past, told not cancer Remains, unsure about changes. Results below reviewed w/ her today Review of Systems - Skin: Right axillary mass, non-painful unless irritated. Physical Exam (previous) General: Well developed, well nourished, in no acute distress. Appears stated age. Head: Normocephalic, atraumatic. Eyes: Pupils are equal, round and reactive to light and accommodation. Mild conjunctival pallor Lungs: Clear to auscultation bilaterally. No rales, rhonchi or wheeze noted. Good air flow in all garcia. Heart: Regular rate and rhythm. No murmurs, click, rubs or gallops are noted. Abdomen: Bowel sounds present in all quadrants. The abdomen is soft, nontender, with no masses or organomegaly noted. No hernias are noted. R axilla under the area of pink, hypertrophied skin is a mobile mildly painful lump; some local adenopathy appreciated. No redness or drainage. Pulses: Peripheral pulses are equal and palpable bilaterally. Extremities: No clubbing, cyanosis nor edema is noted. Psych: Mood and affect appropriate. Results: See below Assessment and Plan 1. Right Axillary Mass - US as below; benign; this area can become painful and bothersome. She does worry about this getting bigger or worse Discussed referral to surgeon for eval. She would like to think about this. Advised to send me a portal message w/ her choice. RTO as scheduled, sooner PRN Telehealth Attestation I attest that this visit was conducted by telehealth means and the documentation accurately reflects the encounter. The patient has been explained that this is an interactive (audio/video) telehealth encounter and what that consists of. The patient understands and wishes to proceed. [employer] platform was used. Total time spent caring for the patient today was 12 minutes. This includes time spent before the visit reviewing the chart, time spent during the visit, and time spent after the visit on documentation, reviewing laboratory results, diagnostic imaging, medications, performing a medically necessary evaluation, counseling on diagnoses, care coordination, ordering appropriate tests, ordering appropriate medications, review of tests performed by other providers, reporting test results with the patient, communication with other healthcare providers. [facility] Medical History (Updated 10/23/24 @ 09:13 by Saloni Tillman [facility]) GERD (gastroesophageal reflux disease) Headache Low iron Migraines Surgical History (Updated 08/19/24 @ 10:11 by Vita Cuadra MA) No pertinent past surgical history Family History Mother HTN (hypertension) Father Diabetes Social History (Updated 10/23/24 @ 09:04 by Natalee Hobbs MA) Household Members: Children and Other Household Members Other:: parents Both parents involved: Yes Caregiver staying overnight: No Housing: House Are you a primary clinical manager home care to a significant other at home: Yes Do you presently have visiting nurse or other home services: No 75 years or older and lives alone: No Alcohol intake: current Alcohol intake frequency: a few times a month Patient Tobacco Use Status: Never used Tobacco e-Cigarette/Vaping Use: Never Used Second Hand Smoke Exposure: No Use of substances other than those prescribed or required for medical reasons: No Current occupational status: employed 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 Lev Jean, Maria Fernanda Davis, Rolando Lua and colleagues, with an educational john from [employer]. Physical exam (Primary Care) Tobacco/Smoking Status: Tobacco use Status Tobacco use date assessed 08/19/24 10/23/24 09:01 Patient Tobacco Use Status Never used Tobacco 10/23/24 09:04 e-Cigarette/Vaping Use Never Used 10/23/24 09:04 Thrive Assessment: Date of Thrive Assessment Date Thrive assessed 08/19/24 10/23/24 09:01 Telehealth Telehealth Telehealth Platform: Telephone Location of provider rendering services: practice address Location of patient: address on file Patient Identification confirmed using: Name, : Yes Telehealth method: voice only Patient verbally consented to treatment: Yes Patient verbally consented to billing insurance company: Yes Patient informed of any privacy concerns related to visit: Yes Results Reviewed Results Reviewed: [place] [address] Ultrasound Report Signed Patient: Mariposa Pineda MR#: [id number] : 1995 Acct:[id number] Age/Sex: 28 / F ADM Date: 10/21/24 Loc: HO.US Attending Dr: Saloni WARD Ordering Physician: Saloni Tillman Date of Service: 10/21/24 Procedure(s): US soft tiss head and/or neck Accession Number(s): [id number] cc: Saloni Tillman~ EXAMINATION: US SOFT TISSUE HEAD AND NECK LIMITED. CLINICAL INFORMATION: Localized swelling/mass/lump, right upper limb. COMPARISON: None available. TECHNIQUE: Linear transducer d[place]-scale and color Doppler examination with attention to the region of the right axilla. Limited exam. FINDINGS: No solid or cystic lesion. No fluid collections. No increased vasculature on color Doppler interrogation. US/US soft tiss head and/or neck IMPRESSION: No solid or cystic lesion. Negative exam.. Electronically signed by: Mauricio Ernst MD 10/22/2024 07:24 AM EDT RP Dictated By: Mauricio Onofre MD Signed By: <Electronically signed by Mauricio Ghosh MD in OV> 10/22/24 0724 DD/ 1649 TD/TT: 10/21/24 1653 Motorized Squad Commanding Officer: Coding Level of Care Code Tele Est Pt Level 2 (49677) Complex EM visit Add On G2211 Diagnoses Encounter to discuss test results Z71.2 Mass of right axilla R22.31 Assessment & Plan Assessment & Plan (1) Encounter to discuss test results: Code(s): Z71.2 - Person consulting for explanation of examination or test findings (2) Mass of right axilla: Comment: US 10/21/24 Benign, consider surgical consult PRN Code(s): R22.31 - Localized swelling, mass and lump, right upper limb Category: Medical Plan .
== END 2024-10-23 09:13 | disposition home or self-care (01) ==
LOC: HO.HMCFM 08:55
PROVIDERS: PCP Nurse Practitioner Family; Visit Provider Nurse Practitioner Family
DX: R22.31 Localized swelling, mass and lump, right upper limb (principal); Z71.2 Person consulting for explanation of examination or test findings

== ENCOUNTER 2024-11-16 16:44 | Outpatient (REF) | payer BC, SELFPAY ==
--- OUTSIDE RECORDS SUMMARY | 2016-07-10 14:30 | XMS_ITS | Continuity of Care Document ---
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 [address], [place], [address], [place]. tel:[phone] [facility], [address], [place], [place], [id number], [place] tel:[phone] [facility] Radiology Void Ticket 7 [facility]. [address] [place], [address], [place]. tel:[phone] Office/outpa tient visit,jan [facility], [address] [place] [address], [id number], [place] tel:[phone] [facility] Urgent Care musculoskelet al pain (chief complaint) Acute pain of right shoulder 7 Linsenbigle r Edwin. [facility] [place], [address], [place]. tel:[phone] Office/outpa tient visit,[facility], [address] [place] [address], [id number], [place] tel:[phone] [facility] Sore throat (chief complaint)Cli nical guidelines (chief complaint) Acute bacterial tonsillitisO th bacterial agents as the cause of diseases classd elswhrBody mass index (BMI) 32.0-32.9, adult 6 Cushingber[place] y-Rivas Julia. [address] [place] [address], [address], [place]. tel:[phone] Office/outpa tient visit,[facility], [address] [place] [address], [id number], [place] tel:[phone] [facility] Cough (chief complaint) CoughEncount er for exam of blood pressure w/o abnormal findings 5 Cushingberr y-Rivas Juila. [address] [place], [address], [place]. tel:[phone] Office/outpa tient visit,[facility], [facility], [address] [place] [address], [id number], [place] tel:[phone] [facility] cough (chief complaint) URI, acutePregnan t 5 Silverio Omer. [facility] [place], [address], [place]. tel:[phone] [facility], [address], [place], [place], [id number], [place] tel:[phone] [facility] Radiology No Information 5 Ludin Wayneder. [address] [place], [address], [place]. tel:[phone] Office/outpa tient visit,est, [facility], [address], [place], [place], [id number], [place] tel:[phone] [facility] Urgent Care L ankle swollen (chief complaint)ank le pain (chief complaint) Left ankle injury 5 Noland Yadwinder. [address] [place], [address], [place]. tel:[phone] Office/outpa tient visit,[facility], [facility], [address], [place], [id number], [place] tel:[phone] [facility] Discuss test results (chief complaint) Mass of right axilla 5 Cushingberr y-Rivas Julia. [address] [place], [address], [place]. tel:[phone] Office/outpa tient visit,[facility], [facility], [address], [place], [id number], [place] tel:[phone] [facility] Follow Up of Mass of R- axilla (chief complaint) Mass of right axilla 5 Cushingberr y-Rivas Julia. [address] [place], [address], [place]. tel:[phone] Office/outpa tient visit,[facility], [facility], [address], [place], [id number], [place] tel:[phone] [facility] ultrasound results (chief complaint) LOCAL SUPRFICIAL SWELLNG 5 4 Latanya Dumont. [address] [place], [address], [place]. tel:[phone] OFFICE/OUTPA TIENT VISIT [facility], [address], [place], [place], [id number], [place] tel:[phone] [facility] Practice swollen underarm (chief complaint) OTH SPECIFIED EXAMMass of right axilla 4 Latanya Dumont. [address] [place], [address], [place]. tel:[phone] Family History Family Member Type Diagnosis Age At Onset Problem (finding) Family history of Diabe kristen mellitus Problem (finding) Family history of cancer of the esophagus Problem (finding) Family history of hyper tension Problem (finding) Family history of malignant neoplasm of breast in first degree relative Payers Payer name Insurance type Covered democrat ID [facility]iza tion[facility]) [facility] [id number] Social History Type Description Quantity Date Captured [...] Eye Exam. Due on due Goal HPV (1st). Due on due Goal PAP. Due on due Goal Depression screening. Due on due Goal Eye Exam. Due on due Goal Lipid panel. Due on due Goal Tdap Vaccine . Due on due Goal Eye Exam. Due on due Goal PAP. Due on due Goal Lipid panel. Due on due Goal HPV (1st). Due on 7 due Goal Tdap Vaccine . Due on due Goal Depression screening. Due on due Goal Lipid panel. Due on 016 due Goal Eye Exam. Due on due Goal HPV (1st). Due on 6 due Goal Tdap Vaccine . Due on due Patient Education Neck Spasm: Exercises c [...] bring vaccine record in next visit. 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 Cough (comments) says cough 6 we eks [...] weakness. L ankle swollen Discuss test results 18 yr. old female presents to discuss results on ultrasound of the axilla performed on . Discuss test results (comments) no complaints today no pain to the area Follow Up of Mass of R- axilla [...] emergency room. Related to Neck muscle spasm You received trigger point injections today to [...] Related to Strain of neck, initial encounter Ibuprofen as needed for painTry ice/heatFollow up [...] Mental Status Date Cognitive Assessment Orientation - [place] ed to time, place, person, situation. Patient Care Teams Name Effective Dates (start - stop) Status Members No Information
[2024-11-16 17:40] LABS: Iron 31 mcg/dL (30-160); Percent Iron Saturation 9 % (15-50); Total Iron Binding Capacity 335 mcg/dL (228-428); Unsaturated Iron Binding 304 ug/dL
== END 2024-11-16 16:45 | disposition home or self-care (01) ==
LOC: HO.LAB 16:44
PROVIDERS: PCP Nurse Practitioner Family; Visit Provider Nurse Practitioner Family
DX: D50.0 Iron deficiency anemia secondary to blood loss (chronic) (principal)
CPT/HCPCS: 36415; 82247; 82248; 83010; 83540; 83615

== ENCOUNTER 2024-11-20 08:18 | Outpatient (AMB) | payer BC, SELFPAY ==
--- OUTSIDE RECORDS SUMMARY | 2016-07-10 14:30 | XMS_ITS | Continuity of Care Document ---
Author Organization [facility] Address [address] [place] [address] Phone Care Team Providers Care Check Services Clerk Name Role Phone Carmen Banda Unavailable Unavailable [...] Copied on Encounter Office/outpa tient visit,est, mod [facility], [address], [place], [place], [id number], [place] tel:[phone] [facility] Ur[facility] Care Neck pain (chief complaint) Strain of neck, initial encounterNec k muscle spasm 7 Veronika Morales. [address], [place], [address], [place]. tel:[phone] [facility], [address], [place], [place], [id number], [place] tel:[phone] [facility] Radiology Void Ticket 7 [facility]. [address] [place], [address], [place]. tel:[phone] Office/outpa tient visit,jan [facility], [address] [place] [address], [id number], [place] tel:[phone] [facility] Urgent Care musculoskelet al pain (chief complaint) Acute pain of right shoulder 7 Linsenbigle r Edwin. [facility] [place], [address], [place]. tel:[phone] Office/outpa tient visit,[facility], [address] [place] [address], [id number], [place] tel:[phone] [facility] Sore throat (chief complaint)Cli nical guidelines (chief complaint) Acute bacterial tonsillitisO th bacterial agents as the cause of diseases classd elswhrBody mass index (BMI) 32.0-32.9, adult 6 Cushingberr y-Rivas Julia. [address] [place] [address], [address], [place]. tel:[phone] Office/outpa tient visit,[facility], [address] [place] [address], [id number], [place] tel:[phone] [facility] Cough (chief complaint) CoughEncount er for exam of blood pressure w/o abnormal findings 5 Cushingberr y-Rivas Julia. [address] [place], [address], [place]. tel:[phone] Office/outpa tient visit,[facility], [facility], [address] [place] [address], [id number], [place] tel:[phone] [facility] cough (chief complaint) URI, acutePregnan t 5 Silverio Omer. [facility] [place], [address], [place]. tel:[phone] [facility], [address], [place], [place], [id number], [place] tel:[phone] [facility] Radiology No Information 5 Ludin Wayneder. [address] [place], [address], [place]. tel:[phone] Office/outpa tient visit,est, [facility], [address], [place], [place], [id number], [place] tel:[phone] [facility] Ur[facility] Care L ankle swollen (chief complaint)ank le pain (chief complaint) Left ankle injury 5 Noland Yadwinder. [address] [place], [address], [place]. tel:[phone] Office/outpa tient visit,[facility], [facility], [address], [place], [id number], [place] tel:[phone] [facility] Discuss test results (chief complaint) Mass of right axilla 5 Cushingberr y-Rivas Julia. [address] [place], [address], [place]. tel:[phone] Office/outpa tient visit,[facility], [facility], [address], [place], [id number], [place] tel:[phone] [facility] Follow Up of Mass of R- axilla (chief complaint) Mass of right axilla 5 Cushingberr y-Rivas Julia. [address] [place], [address], [place]. tel:[phone] Office/outpa tient visit,[facility], [facility], [address], [place], [id number], [place] tel:[phone] [facility] ultrasound results (chief complaint) LOCAL SUPRFICIAL SWELLNG 5 4 Latanya Dumont. [address] [place], [address], [place]. tel:[phone] OFFICE/OUTPA TIENT VISIT [facility], [address], [place], [place], [id number], [place] tel:[phone] [facility] Practice swollen underarm (chief complaint) OTH SPECIFIED EXAMMass of right axilla 4 Latanya Dumont. [address] [place], [address], [place]. tel:[phone] Family History Family Member Type Diagnosis Age At Onset Problem (finding) Family history of Diabe kristen mellitus Problem (finding) Family history of cancer of the esophagus Problem (finding) Family history of hyper tension Problem (finding) Family history of malignant neoplasm of breast in first degree relative Payers Payer name Insurance type Covered constitution party ID Authoriza tion(s) [facility] [id number] Social History Type Description Quantity Date Captured [...] panel. Due on 017 due Goal HPV (). Due on due [...] last week after dance practice. Sore throat (comments) pain in r ight ear and right side of thorat started yesterday no fever, slight cough non productive. LMP 2 weeks Clinical guidelines Per clinical guidelines patient due for Lipid panel,Eye exam,Tdap and HPV vaccines. Patient aware,will bring vaccine record in next visit. -[facility] Sore throat Onset: 1 Day. Pa in [...] are no associated symptoms. 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 Cough (comments) says cough 6 we eks [...] order for 6 mo. u/s. ultrasound results pt is here fo r her ultrasound results of arm done 09/15/13 ultrasound results (comments) he re for results no pain under arm swollen underarm The symptoms be sophia 1 [...] Mental Status Date Cognitive Assessment Orientation - [place] ed to time, place, person, situation. Patient Care Teams Name Effective Dates (start - stop) Status Members No Information
--- NOTE | 2024-11-20 08:20 | MHC.PC.OV ---
Vital Signs 11/20/24 08:24 Height 5 ft 3 in Weight 204 lb 2 oz BMI 36.2 BP 138/76 Blood Pressure Location Rt brachial Position Sitting Respiration 13 Pulse 76 Pulse Source Pulse Oximeter Temp 97.6 F Temp Source Oral Pulse Oximetry (%) 99 Oxygen Delivery Method Room Air Intake Visit Reasons: FU Anemia, Labs and Migraines Intake Note: Follow up on migraines and review labs. Patient wants to discuss her control options. Advertising Inserter Required: No Allergies No Known Allergies Allergy (Verified 11/20/24 08:41) Medication List - Last Reconciled 11/20/24 by YOVANI Lazcano- ferrous sulfate (iron) 325 mg PO DAILY magnesium oxide 400 mg PO BEDTIME norethindrone (contraceptive) 0.35 mg PO DAILY riboflavin (vitamin B2) 400 mg PO BEDTIME sumatriptan succinate take 1 tab at onset of headache; if no relief may repeat 1 tab after at least 2 hrs; max = 4 tabs/24 hr PO Tobacco use date assessed: 11/20/24 Dental Screening Dental Screen Date: 11/20/24 Did you have a dental visit in the last 12 months?: Yes Did you have a dental problem in the last 6 months where you did not have access to dental care?: No Was dental information given to patient?: Patient has dentist HPI HPI Comments History of Present Illness Details 28 y/o F with anemia, R axilla mass, migraines, obesity s/p L foot surgery w/ hardware 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 Iron Deficiency Anemia: - Improved with ferrous sulfate. - Associated with menorrhagia. Migraines: - Controlled with magnesium, riboflavin, and sumatriptan. - No recent migraine episodes since starting prophylactics. Right Axillary Mass: - Negative ultrasound findings. - She does not want to consult w/ Surgeon; it doesnt really bother her unless there is friction to the area Menorrhagia: - Prolonged bleeding with oral contraceptive. - Discontinued contraceptive after 2.5 months. Bleeding now. Flu given today. Review of Systems - Hematologic/Lymphatic: Reports menorrhagia. - Neurologic: Denies recent migraines. - Gynecologic: Reports prolonged bleeding with oral contraceptive use. - Miscellaneous: Denies use of medication to halt menorrhagia. Physical Exam (previous) General: Well developed, well nourished, in no acute distress. Appears stated age. Head: Normocephalic, atraumatic. Eyes: Pupils are equal, round and reactive to light and accommodation. Mild conjunctival pallor Lungs: Clear to auscultation bilaterally. No rales, rhonchi or wheeze noted. Good air flow in all garcia. Heart: Regular rate and rhythm. No murmurs, click, rubs or gallops are noted. R axilla under the area of pink, hypertrophied skin is a mobile mildly painful lump; some local adenopathy appreciated. No redness or drainage. Pulses: Peripheral pulses are equal and palpable bilaterally. Extremities: No clubbing, cyanosis nor edema is noted. Psych: Mood and affect appropriate. Results See below Discussion Notes I discussed the current status of the patient's iron deficiency anemia, which has improved with ferrous sulfate, and the ongoing challenge of managing her heavy menstrual bleeding. We reviewed the failure of the current oral contraceptive, plans to consult with her OBGYN regarding potential interventions, and her decision to stop it due to prolonged bleeding. I offered short-term medication to manage bleeding and advised immediate commencement of updated prescription if taken. We also reviewed migraine management, with improvement noted and no recent episodes. I stressed the importance of follow-up with gynecology for ongoing evaluation and management and provided consent for prescribing short-term medication. We scheduled routine follow-up for iron monitoring in six months and provided general wellness advice. Patient was given time to ask questions. All questions were answered to their satisfaction. Assessment and Plan 1. Iron Deficiency Anemia - Continue ferrous sulfate; re-evaluate in six months. 2. Migraines - Continue preventive regimen; monitor for recurrence. 3. Right Axillary Mass - Negative ultrasound; monitor without intervention. 4. Menorrhagia - Discontinued contraceptive. - 5 days of Tranexamic acid to help. - Advised to call OBGYN for management alternative. Patient Instructions - Take ferrous sulfate daily to maintain iron levels. - Use sumatriptan as needed for migraines. - Follow up with OBGYN regarding menorrhagia and control options. - Start prescribed medication for bleeding immediately. - Schedule labs in six months to check iron levels. - Call or message the office if conditions worsen or new symptoms develop. - RTO 6 mo with labs for CPE. Sooner as needed. Consent Patient was informed and verbally consented to the use of an ambient scribe for clinic note documentation during this visit. Total time spent caring for the patient today was 30 minutes. This includes time spent before the visit reviewing the chart, time spent during the visit, and time spent after the visit on documentation, reviewing laboratory results, diagnostic imaging, medications, performing a medically necessary evaluation, counseling on diagnoses, care coordination, ordering appropriate tests, ordering appropriate medications, review of tests performed by other providers, reporting test results with the patient, communication with other healthcare providers. [facility] Medical History (Updated 11/20/24 @ 08:41 [facility] GERD (gastroesophageal reflux disease) Headache Low iron Migraines Surgical History (Updated 08/19/24 @ 10:11 by Vita Cuadra MA) No pertinent past surgical history Family History Mother HTN (hypertension) Father Diabetes Social History (Updated 10/23/24 @ 09:04 by Natalee Hobbs MA) Household Members: Children and Other Household Members Other:: parents Both parents involved: Yes Caregiver staying overnight: No Housing: House Are you a primary customer care representative to a significant other at home: Yes Do you presently have visiting nurse or other home services: No 75 years or older and lives alone: No Alcohol intake: current Alcohol intake frequency: a few times a month Patient Tobacco Use Status: Never used Tobacco e-Cigarette/Vaping Use: Never Used Second Hand Smoke Exposure: No Current occupational status: employed 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 Cognitive needs: No Hearing needs: No Vision needs: No Questionnaire Thrive Questionnaire Date Thrive assessed: 08/19/24 I am a: Patient What is your living situation today?: I have a steady place to live Within the past 12 months, did the food you bought not last and you didn't have the money to get more?: Never true Within the past 12 months, did you worry whether your food would run out before you got money to buy more?: Never true Do you have trouble paying for medicines?: No Do you have trouble getting transportation to medical appointments?: No Do you have trouble paying your heating and electricity bill?: No Do you have trouble taking care of your child, family member or friend?: No Do you have trouble with day-to-day activities such as bathing, preparing meals, shopping, managing finances, etc.?: No Are you currently unemployed and looking for a job?: No Are you interested in more education?: Yes Please select the resources that you would like help with: None Currently or been in a relationship where the following occur: No concerns reported THRIVE Score: 0 ROXANNE-7 AMB Questionnaire ROXANNE-7 Date ROXANNE - 7 assessed: 08/19/24 Source: Developed by Drs. Lev Jean, Maria Fernanda aDvis, Rolando Lua and colleagues, with an educational john from [employer]. Physical exam (Primary Care) Vital Signs: Last Vital Signs Temp 97.6 F 11/20/24 08:24 Pulse 76 11/20/24 08:24 Resp 13 11/20/24 08:24 BP 138/76 11/20/24 08:24 Pulse Ox 99 11/20/24 08:24 Oxygen Delivery Method Room Air 11/20/24 08:24 BMI result Body Mass Index 36.2 BMI Assessment/Plan discussion: High BMI High, discussed plan: lifestyle Tobacco/Smoking Status: Tobacco use Status Tobacco use date assessed 11/20/24 11/20/24 08:21 Patient Tobacco Use Status Never used Tobacco 11/20/24 08:20 e-Cigarette/Vaping Use Never Used 11/20/24 08:20 Thrive Assessment: Date of Thrive Assessment Date Thrive assessed 08/19/24 11/20/24 08:20 Currently or been in a relationship where the following occur: No concerns reported Office Procedures Flu Questionnaire Does the patient have a severe egg allergy?: No Does the patient have severe life threatening allergies?: No Does the patient have a fever or illness today?: No Has the patient ever had Guillain-[place] Syndrome?: No Has the patient ever had any past reaction to a flu shot?: No Immunizations Fluarix [id number] (PF) 45 mcg (15 mcg x 3)/0.5 mL IM syringe Performing Provider: ED Lazcano [place] [facility] Administered by: Vita Cuadra MA on 11/20/24 08:30 Dose Route Admin Location Dispensed Lot Number Expiration Date NDC Loom Stop Checker 0.5 mL IM Left Deltoid 0.5 mL [id number] 08/24/25 [id number] [employer] VIS Given Date VIS Provided VIS Publication Date 11/20/24 Single Vaccine 24 Eligibility Eligibility Date Funding Source Not [facility] Eligible 11/20/24 Private Results Reviewed Results Reviewed: Laboratory 11/16/24 Result Units Range Interpretation Provider Comments Blood Smear Pathologist Review SEE NOTE Haptoglobin (Chem) 74 mg/dL (35-250) Iron Level 31 mcg/dL (30-160) Total Iron Binding Capacity 335 mcg/dL (228-428) Percent Iron Saturation 9 % (15-50) Low Unsaturated Iron Binding 304 ug/dL Total Bilirubin 0.3 mg/dL (0.0-1.0) Direct Bilirubin 0.1 mg/dL (0.0-0.5) Lactate Dehydrogenase 216 U/L (122-220) Hold Yellow Top Tube See Note Coding Level of Care Code Est Pt Level 4 (74389) Complex EM visit Add On G2211 Diagnoses Influenza vaccination administered at current visit Z23 Iron deficiency anemia due to chronic blood loss D50.0 Anemia type: iron deficiency Iron deficiency anemia type: chronic blood loss Migraine without aura and without status migrainosus, not intractable G43.009 Status migrainosus presence: without status migrainosus Intractability: not intractable Mass of right axilla R22.31 Menorrhagia with regular cycle N92.0 Menorrhagia type: with regular cycle Obesity (BMI 30-39.9) E66.9 Assessment & Plan Assessment & Plan (1) Influenza vaccination administered at current visit: Code(s): Z23 - Encounter for immunization Category: Medical (2) Anemia: Code(s): D64.9 - Anemia, unspecified Category: Medical Qualifiers: Anemia type: iron deficiency Iron deficiency anemia type: chronic blood loss Qualified Code(s): D50.0 - Iron deficiency anemia secondary to blood loss (chronic) (3) Migraine headache without aura: Code(s): G43.009 - Migraine without aura, not intractable, without status migrainosus Category: Medical Qualifiers: Status migrainosus presence: without status migrainosus Intractability: not intractable Qualified Code(s): G43.009 - Migraine without aura, not intractable, without status migrainosus (4) Mass of right axilla: Comment: US 10/21/24 Benign, consider surgical consult PRN Code(s): R22.31 - Localized swelling, mass and lump, right upper limb Category: Medical (5) Menorrhagia: Code(s): N92.0 - Excessive and frequent menstruation with regular cycle Category: Medical Qualifiers: Menorrhagia type: with regular cycle Qualified Code(s): N92.0 - Excessive and frequent menstruation with regular cycle (6) Obesity (BMI 30-39.9): Code(s): E66.9 - Obesity, unspecified Category: Medical Plan . Orders: Orders Influenza [id number] Immunization Today Z23 - Encounter for immunization Complete Blood Count no Diff 6 Months D50.0 - Iron deficiency anemia secondary to blood loss (chronic), N92.0 - Excessive and frequent menstruation with regular cycle Comprehensive Met. Panel 6 Months D50.0 - Iron deficiency anemia secondary to blood loss (chronic), N92.0 - Excessive and frequent menstruation with regular cycle Ferritin 6 Months D50.0 - Iron deficiency anemia secondary to blood loss (chronic), N92.0 - Excessive and frequent menstruation with regular cycle IRON PROFILE 6 Months D50.0 - Iron deficiency anemia secondary to blood loss (chronic), N92.0 - Excessive and frequent menstruation with regular cycle Medications: New tranexamic acid 1,300 mg (2 x 650 mg) PO TID 30 tabs 0RF 5 days
[2024-11-20 08:24] VITALS: BP 138/76; PULSE 76; RESP 13; TEMP 36.4; O2SAT 99; BMI 36.2
== END 2024-11-20 08:52 | disposition home or self-care (01) ==
LOC: HO.HMCFM 08:19
PROVIDERS: PCP Nurse Practitioner Family; Visit Provider Nurse Practitioner Family
DX: D50.0 Iron deficiency anemia secondary to blood loss (chronic) (principal); G43.009 Migraine without aura, not intractable, without status migrainosus; E66.9 Obesity, unspecified; Z68.36 Body mass index [BMI] 36.0-36.9, adult; Z23 Encounter for immunization; R22.31 Localized swelling, mass and lump, right upper limb; N92.0 Excessive and frequent menstruation with regular cycle

== ENCOUNTER → 2024-11-20 08:18 | Outpatient (BNVA) | payer BC, SELFPAY | PROVIDERS: PCP Nurse Practitioner Family; Visit Provider Nurse Practitioner Family | DX: D50.0 Iron deficiency anemia secondary to blood loss (chronic) (principal); G43.909 Migraine, unspecified, not intractable, without status migrainosus; N92.0 Excessive and frequent menstruation with regular cycle; G43.009 Migraine without aura, not intractable, without status migrainosus; E66.9 Obesity, unspecified; Z23 Encounter for immunization; Z68.36 Body mass index [BMI] 36.0-36.9, adult | CPT/HCPCS: 90471; 90656 ==

== ENCOUNTER 2024-12-02 07:24 | Outpatient (REF) | payer BC, SELFPAY ==
--- OUTSIDE RECORDS SUMMARY | 2016-07-10 14:30 | XMS_ITS | Continuity of Care Document ---
Author Organization [facility] Address [address] [place] [address] Phone Care Team Providers Care Addiction Specialist Name Role Phone Carmen Banda Unavailable Unavailable Allergies, Adverse Reactions, Alerts Substance Reaction Status Criticality No Known Allergies Active No Inform ation Medications Medication Instructions Dosage Effective Dates (start - stop) Status Comments EXCEDRIN MIGRAINE (unknown strength) Not Available - No Longer Active Procedures Procedure Date Office/outpatient visit,est, mod 2016 Void Ticket X-ray exam of collarbone, complete (2 Vi ews) X-ray exam of shoulder, complete (2 View s) Office/outpatient visit,est, mod 2016 Office/outpatient visit,est, mod 2015 BODY MASS INDEX DOCD Systolic Blood Pressure Less Than 130mm Hg Diastolic Blood Pressure Less Than 80mm Hg Normal BP Reading Documented. F/U Not Re quired Office/outpatient visit,est, mod 2014 Systolic Blood Pressure Less Than 130mm Hg Diastolic Blood Pressure 80-89mm Hg Office/outpatient visit,est, mod 2014 Systolic Blood Pressure 131-139mm Hg Oct Diastolic Blood Pressure Less Than 80mm Hg Void Ticket Systolic Blood Pressure Less Than 130mm Hg Diastolic Blood Pressure Less Than 80mm Hg X-ray exam of ankle, complete 5 Office/outpatient visit,est, mod 2014 Systolic Blood Pressure Less Than 130mm Hg Diastolic Blood Pressure Less Than 80mm Hg Normal BP Reading Documented. F/U Not Re quired Normal BP Reading Documented. F/U Not Re quired Normal BP Reading Documented. F/U Not Re quired Office/outpatient visit,est, low 2014 Systolic Blood Pressure Less Than 130mm Hg Diastolic Blood Pressure Less Than 80mm Hg Normal BP Reading Documented. F/U Not Re quired Normal BP Reading Documented. F/U Not Re quired Office/outpatient visit,est, mod 2014 Systolic Blood Pressure Less Than 130mm Hg Diastolic Blood Pressure Less Than 80mm Hg Office/outpatient visit,est, low 2013 Systolic Blood Pressure Less Than 130mm Hg Diastolic Blood Pressure Less Than 80mm Hg OFFICE/OUTPATIENT VISIT NEW Advance Directives Directive Yes / No Effective Date File Name No Information Encounters Encounter Description Practice Location Reason(s) For Visit Diagnoses Date Provider Providers Copied on Encounter Office/outpa tient visit,est, mod [facility], [address], [place], [place], [id number], [place] tel:[phone] [facility] Urgent Care Neck pain (chief complaint) Strain of neck, initial encounterNec k muscle spasm 7 Vernoika Morales. [address], [place], [address], [place]. tel:[phone] [facility], [address], [place], [place], [id number], [place] tel:[phone] [facility] Radiology Void Ticket 7 [facility]. [address] [place], [address], [place]. tel:[phone] Office/outpa tient visit,jan [facility], [address] [place] [address], [id number], [place] tel:[phone] [facility] Urgent Care musculoskelet al pain (chief complaint) Acute pain of right shoulder 7 Linsenbigle r Edwin. [facility] [place], [address], [place]. tel:[phone] Office/outpa tient visit,[facility], [address] [place] [address], [id number], [place] tel:[phone] [facility] Sore throat (chief complaint)Cli nical guidelines (chief complaint) Acute bacterial tonsillitisO th bacterial agents as the cause of diseases classd elswhrBody mass index (BMI) 32.0-32.9, adult 6 [facility]-Rivas Julia. [address] [place] [address], [address], [place]. tel:[phone] Office/outpa tient visit,[facility], [address] [place] [address], [id number], [place] tel:[phone] [facility] Cough (chief complaint) CoughEncount er for exam of blood pressure w/o abnormal findings 5 [facility]-Rivas Julia. [address] [place], [address], [place]. tel:[phone] Office/outpa tient visit,[facility], [facility], [address] [place] [address], [id number], [place] tel:[phone] [facility] cough (chief complaint) URI, acutePregnan t 5 Silverio Omer. [facility] [place], [address], [place]. tel:[phone] [facility], [address], [place], [place], [id number], [place] tel:[phone] [facility] Radiology No Information 5 Ludin Wayneder. [address] [place], [address], [place]. tel:[phone] Office/outpa tient visit,est, [facility], [address], [place], [place], [id number], [place] tel:[phone] [facility] Urgent Care L ankle swollen (chief complaint)ank le pain (chief complaint) Left ankle injury 5 Noland Yadwinder. [address] [place], [address], [place]. tel:[phone] Office/outpa tient visit,[facility], [facility], [address], [place], [id number], [place] tel:[phone] [facility] Discuss test results (chief complaint) Mass of right axilla 5 [facility] Julia. [address] [place], [address], [place]. tel:[phone] Office/outpa tient visit,[facility], [facility], [address], [place], [id number], [place] tel:[phone] [facility] Follow Up of Mass of R- axilla (chief complaint) Mass of right axilla 5 [place] [facility] Julia. [address] [place], [address], [place]. tel:[phone] Office/outpa tient visit,[facility], [facility], [address], [place], [id number], [place] tel:[phone] [facility] ultrasound results (chief complaint) LOCAL SUPRFICIAL SWELLNG 5 4 Latanya Dumont. [address] [place], [address], [place]. tel:[phone] OFFICE/OUTPA TIENT VISIT [facility], [address], [place], [place], [id number], [place] tel:[phone] [facility] Practice swollen underarm (chief complaint) OTH SPECIFIED EXAMMass of right axilla 4 Latanya Dumont. [address] [place], [address], [place]. tel:[phone] Family History Family Member Type Diagnosis Age At Onset Problem (finding) Family history of Diabe kristen mellitus Problem (finding) Family history of cancer of the esophagus Problem (finding) Family history of hyper tension Problem (finding) Family history of malignant neoplasm of breast in first degree relative Payers Payer name Insurance type Covered libertarian ID Authoriza tion([facility] [id number] Social History Type Description Quantity Date Captured Comments Alcohol Use Details Unknown Caffeine Use Details Unknown Tobacco Use Status Never smoked tobacco 2016 Smoking Status Never smoker Non-Smoking Tobacco Use Details : No Details Available : No Details Available Sex Female Sexual Orientation Straight or heterosexual Vital Signs Date / Time: Height Weight BMI Pulse Rate Blood Pressure Temperature Respiratory Rate Body Surface Area Head Circumference Head Circ. Percentile Wt./Garth. Percentile BMI percentile Pulse Ox Inhaled Ox 6:42 PM 63.00 in 78.199 kg (172.40 lbs) 30.5 4 kg/m eter (2) 69 /min 114/74 mm[Hg] 98.10 F 20 /min 100 % Chief Complaint And Reason For Visit From encounter dated '07/10/2016 18:30'. Neck pain (chief complaint). Description: Onset: 12 hours ago. The severity of the problem is moderate. The problem has not changed. The frequency of pain is constant. Location of pain is right lateral neck. The patient describes the pain as piercing. Aggravating factors include bending and turninghead. Additional information: pt woke up with a neck pain on her R side and and is getting worst. pt hadn't taken any pain meds today. RK RN. Reason For Referral Reason For Referral No Information Plan Of Treatment Date Type Action Status Goal Tdap Vaccine . Due on due Goal Lipid panel. Due on due Goal PAP. Due on due Goal HPV (). Due on due Goal Eye Exam. Due on due Goal Depression screening. Due on due Goal Eye Exam. Due on due Goal Depression screening. Due on due Goal Tdap Vaccine . Due on due Goal Lipid panel. Due on due Goal HPV (). Due on due Goal PAP. Due on due Goal Depression screening. Due on due Goal Tdap Vaccine . Due on due Goal HPV (1st). Due on due Goal Lipid panel. Due on due Goal PAP. Due on due Goal Eye Exam. Due on due Goal Eye Exam. Due on due Goal Tdap Vaccine . Due on due Goal HPV (1st). Due on 6 due Goal Lipid panel. Due on 016 due Patient Education Neck Spasm: Exercises c ompleted Patient Education Muscle Strain: After Yo ur Visit completed Patient Education Tonsillitis: After Your Visit completed History Of Present Illness Encounter Date Complaint History Of Prese nt Illness Neck pain Onset: 12 hours ago. The severity of the problem is moderate. The problem has not changed. The frequency of pain is constant. Location of pain is right lateral neck. The patient describes the pain as piercing. Aggravating factors include bending and turning head. Additional information: pt woke up with a neck pain on her R side and and is getting worst. pt hadn't taken any pain meds today. ROBBIN RN. Neck pain (comments) History of present illness was reviewed by myself and I a agree with the nurse and i haved made changes accordingly . Carmen Banda MD musculoskeletal pain Onset: 1 we ek ago. Location: right shoulder. The pain radiates to the R side neck. The pain is throbbing. Context: there is no injury. The pain is aggravated by lifting. Additional information: Pt states pain started last week after dance practice. Sore throat Onset: 1 Day. Pa in scale: 4/10. Symptoms are not associated with history of allergies and history of asthma. Associated symptoms include ear ache. Pertinent negatives include fatigue, fever, headache or sinus pressure. Sore throat (comments) pain in r ight ear and right side of thorat started yesterday no fever, slight cough non productive. LMP 2 weeks Clinical guidelines Per clinical guidelines patient due for Lipid panel,Eye exam,Tdap and HPV vaccines. Patient aware,will bring vaccine record in next visit. -Tala [facility] Cough (comments) says cough 6 we eks . says still with cough had a z cory in 10/2014 helded runniny nose tillwith cough . occ procuctinve no fever no shortness of breath antibiotics given by OB during hospital stay. brast feeding no menses yet delivered 11/17/14 Cough Onset: 2 weeks a go. The patient describes the cough as productive (of clear sputum). It occurs persistently. The problem has not changed. There are no associated symptoms. Additional information: -[facility]. cough Onset: 2 weeks a go. The patient describes the cough as productive (of green sputum). It occurs persistently. The problem has become gradually worse. Context: allergies. There are no aggravating factors. There are no relieving factors. Associated symptoms include rhinorrhea. Additional information: Pt states she is 9 months and contacted her OBGYN regarding symptoms he told her all she could take at this point is Tylenol but that isn't helping. L ankle swollen ankle pain Onset: 3 days ag o. It occurs constantly and is stable. Location: left ankle. The pain is aggravated by bending and walking. The pain is relieved by rest. Associated symptoms include joint tenderness. Pertinent negatives include swelling and weakness. Discuss test results (comments) no complaints today no pain to the area Discuss test results 18 yr. old female presents to discuss results on ultrasound of the axilla performed on . Follow Up of Mass of R- axilla 1 8 yr. old female presents for routine 6 mo. f/u on lump of the right axilla. Needs order for 6 mo. u/s. Follow Up of Mass of R- axilla (comments) denies axillary pain lump still present not onf left side. ultrasound results pt is here fo r her ultrasound results of arm done 09/15/13 ultrasound results (comments) he re for results no pain under arm swollen underarm (comments) swol garth area under right arm x 1 yr no increase in size does get tender want to know what it is does not due SBE. fhx on maternal side neg for cancer swollen underarm The symptoms be sophia 1 year ago. The location is right underarm. pt states she has swollen under her right arm. denies pain unless pressure is added Functional Status Date Functional Assessmen t Pain Score 6/10 Medications Administered Medication Instructions Dosage Effective Dates (start - stop) Status Comments No Drug Therapy Prescribed Instructions Date Instruction Additional Infor jake You received trigger point injections today to relief you pain (tigger point injection adminestered on three muscle group (right levator scapula, right upper trapezius, near cervical insertion) using lidocine 2% and Marcaine 2.5)Your pain should improve over the next 24 hours.Use hot or cold pack to the area to improve relaxation. Take 600mg of ibuprofen every 6 hours as needed for pain,This medication has excellent anti-inflammatory properties as well.Do not take if you have any abdominal pain or history of ulcers/bleeding. The care you received today was on an urgent basis.Please f/u with your PMD regarding any changes to chronic management.If you feel your condition is worsening please return immediately or seek care at an emergency room. Related to Strain of neck, initial encounter You received trigger point injections today to relief you pain (tigger point injection adminestered on three muscle group (right levator scapula, right upper trapezius, near cervical insertion) using lidocine 2% and Marcaine 2.5)Your pain should improve over the next 24 hours.Use hot or cold pack to the area to improve relaxation. Take 600mg of ibuprofen every 6 hours as needed for pain,This medication has excellent anti-inflammatory properties as well.Do not take if you have any abdominal pain or history of ulcers/bleeding. The care you received today was on an urgent basis.Please f/u with your PMD regarding any changes to chronic management.If you feel your condition is worsening please return immediately or seek care at an emergency room. Related to Neck muscle spasm Ibuprofen as needed for painTry ice/heatFollow up with your PCP for the official read of the xray and for further workupReturn to clinic if symptoms worsen Related to Acute pain of right shoulder thoat culture done s tart on amox x 10 daysf/u 2 weeks Related to Acute bacterial tonsillitis pertussis screen f/u worstening Related to Cough Most likely viral in nature, informed pt to gargle with salt waterIf symptoms peresist or if she develops fever, rtcRTC yearly for physical exam Related to URI, acute Due 11/10/2014, dinorahniko aaron a baby girl, first child Related to Take tylenol / Advil as needed for pain no acut ankle injury noted, x ray report from radiology is pending. Related to Left ankle injury will follow no tx needed Related to Mass of right axilla right breast us as r ecommended 6 onth f/u Related to Mass of right axilla Assessments Type Assessment Date assessment Strain of neck, initial encounte r assessment Neck muscle spasm Mental Status Date Cognitive Assessment Orientation - [place] ed to time, place, person, situation. Patient Care Teams Name Effective Dates (start - stop) Status Members No Information
[2024-12-02 08:58] LABS: Appearance Urine Cloudy; Glucose Urine UA Negative (Negative); PH 5.5 (5.0-9.0); Specific Gravity - Urine 1.025 (1.005-1.025); UMIC TRIGGER UACC YES
[2024-12-02 11:37] LABS: UACC Culture Trigger YES
== END 2024-12-02 07:25 | disposition home or self-care (01) ==
LOC: HO.LAB 07:24
PROVIDERS: PCP Nurse Practitioner Family; Visit Provider Nurse Practitioner Family
DX: N92.0 Excessive and frequent menstruation with regular cycle (principal); M54.50 Low back pain, unspecified; R30.0 Dysuria
CPT/HCPCS: 81001; 81003; 87086

== ENCOUNTER 2024-12-02 14:21 | Outpatient (AMB) | payer BC, SELFPAY ==
--- NOTE | 2024-12-02 14:19 | A.OFFPC_ITS ---
Intake Visit Reasons: UTI results Allergies No Known Allergies Allergy (Verified 12/02/24 16:08) Tobacco use date assessed: 11/20/24 Dental Screening Dental Screen Date: 11/20/24 HPI HPI Comments History of Present Illness Details 28 yo f telehealth visit cc i think i h zachary a uti started tranexamic acid for aub after last visit and then developed low back pain she googled her sx she has stopped bleeding denies fever chills abd pain n/v vag dc UA results from today reviewed w her plan as she is feeling well otherwise will wait for urine cx results to come back results will be sent via portal until then hydration and vaginal hygiene if low back pain cont will need to investigate further Telehealth Attestation The patient has been explained that this is an interactive (audio/video) telehealth encounter and what that consists of. The patient understands and wishes to proceed. [employer] platform was used. Total time spent caring for the patient today was 15 minutes. This includes time spent before the visit reviewing the chart, time spent during the visit, and time spent after the visit on documentation, reviewing laboratory results, diagnostic imaging, medications, performing a medically necessary evaluation, counseling on diagnoses, care coordination, ordering appropriate tests, ordering appropriate medications, review of tests performed by other providers, reporting test results with the patient, communication with other healthcare providers. [facility] Medical History (Updated 11/20/24 @ 08:41 by Saloni Tillman, [facility]) GERD (gastroesophageal reflux disease) Headache Low iron Migraines Surgical History (Updated 08/19/24 @ 10:11 by Vita Cuadra MA) No pertinent past surgical history Family History Mother HTN (hypertension) Father Diabetes Social History (Updated 10/23/24 @ 09:04 by Natalee Hobbs MA) Household Members: Children and Other Household Members Other:: parents Both parents involved: Yes Caregiver staying overnight: No Housing: House Are you a primary career development associate to a significant other at home: Yes Do you presently have visiting nurse or other home services: No 75 years or older and lives alone: No Alcohol intake: current Alcohol intake frequency: a few times a month Patient Tobacco Use Status: Never used Tobacco e-Cigarette/Vaping Use: Never Used Second Hand Smoke Exposure: No Current occupational status: employed 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 Lev Jean, Maria Fernanda Davis, Rolando Lua and colleagues, with an educational john from [employer]. Physical exam (Primary Care) Tobacco/Smoking Status: Tobacco use Status Tobacco use date assessed 11/20/24 12/02/24 14:19 Patient Tobacco Use Status Never used Tobacco 12/02/24 14:19 e-Cigarette/Vaping Use Never Used 12/02/24 14:19 Thrive Assessment: Date of Thrive Assessment Date Thrive assessed 08/19/24 12/02/24 14:19 Telehealth Telehealth [facility] Location of provider rendering services: practice address Location of patient: address on file Patient Identification confirmed using: Name, : Yes Telehealth method: voice only Patient verbally consented to treatment: Yes Patient verbally consented to billing insurance company: Yes Patient informed of any privacy concerns related to visit: Yes Minutes spent on Phone/Video with Pt.: 5 Results Reviewed Results Reviewed: Laboratory Result Units Range Interpretation Provider Comments Urine Color Dark Yellow Urine Appearance Cloudy Urine pH 5.5 (5.0-9.0) Urine Specific [place] [facility] 1.025 (1.005-1.025) Urine Protein Negative mg/dL (Neg-Trace) Urine Glucose (UA) Negative mg/dL (Negative) Urine Ketones Trace mg/dL (Negative) Urine Blood Negative (Negative) Urine Nitrite Negative (Negative) Urine Leukocyte Esterase Small (1+) (Negative) High Urine RBC 0-2 /HPF (0-2) Urine WBC 21-50 /HPF (0-5) High Urine Squamous Epithelial Cells 11-20 /HPF (0-2) Urine Bacteria 4+ (None Seen) Urine Hyaline Casts 0-2 /LPF (0-2) Coding Level of Care Code Tele Est Pt Level 2 (92042) Complex EM visit Add On G2211 Diagnoses Menorrhagia with regular cycle N92.0 Menorrhagia type: with regular cycle Acute midline low back pain without sciatica M54.50 Chronicity: acute Back pain laterality: midline Sciatica presence: without sciatica Assessment & Plan Assessment & Plan (1) Menorrhagia: Code(s): N92.0 - Excessive and frequent menstruation with regular cycle Category: Medical Qualifiers: Menorrhagia type: with regular cycle Qualified Code(s): N92.0 - Excessive and frequent menstruation with regular cycle (2) Low back ache: Code(s): M54.50 - Low back pain, unspecified Qualifiers: Chronicity: acute Back pain laterality: midline Sciatica presence: without sciatica Qualified Code(s): M54.50 - Low back pain, unspecified Plan .
== END 2024-12-02 16:09 | disposition home or self-care (01) ==
LOC: HO.HMCFM 14:21
PROVIDERS: PCP Nurse Practitioner Family; Visit Provider Nurse Practitioner Family
DX: N92.0 Excessive and frequent menstruation with regular cycle (principal); M54.50 Low back pain, unspecified